=== PATIENT | female | born 1995 | race African-American/Black ===

== ENCOUNTER 2017-03-27 23:28 | Emergency (ER) | payer OTHER ==
[2017-03-27 23:59] LABS: URINE HCG POC HCG NEGATIVE (Negative)
[2017-03-28] MEDS ORDERED: KETOROLAC 60 MG/2 ML INJ. IM (00:30)
[2017-03-28] MEDS ORDERED: KETOROLAC 60 MG/2 ML INJ. (00:31)
== END 2017-03-28 00:47 | disposition home or self-care (01) ==
LOC: ER 23:28
DX: S39.012A Strain of muscle, fascia and tendon of lower back, initial encounter (principal); V43.62XA Car passenger injured in collision with other type car in traffic accident, initial encounter; Y93.I9 Activity, other involving external motion; Y92.410 Unspecified street and highway as the place of occurrence of the external cause; Y99.8 Other external cause status
CPT/HCPCS: 81025; 96372; 99283